=== PATIENT | female | born 2000 | race Caucasian/White ===

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

== ENCOUNTER 2024-04-05 09:45 | Emergency (ER) | payer OTHER, SELFPAY ==
[2024-04-05 09:58] VITALS: BP 146/65; PULSE 61; RESP 20; TEMP 36.1; O2SAT 100
--- NOTE | 2024-04-05 10:03 | ED.NAVMDI ---
HPI - Nausea/Vomiting/Diarrhea General Chief complaint: Nausea/Vomiting/Diarrhea Stated complaint: 22 weeks preg vomitting,diarreha Time Seen by Provider: 04/05/24 10:03 Source: patient and RN notes reviewed Mode of arrival: ambulatory Limitations: no limitations History of Present Illness HPI Narrative: 24-year-old female presented for complaint of uncontrollable nausea and vomiting since 0500. Endorses epigastric discomfort. Patient took compazine but unable to keep it down. OBGYN Was contacted by patient, who advised IV fluids. Denies vaginal bleeding. Cholecystectomy 12/2023. patient [address] weeks [address] Quezada at [facility]. Related Data Home Medications Medication Instructions Recorded Confirmed escitalopram oxalate 10 mg tablet 10 mg PO DAILY 04/05/24 04/05/24 Allergies Allergy/AdvReac Type Severity Reaction Status Date / Time No Known Allergies Allergy Verified 10/28/21 14:38 Review of Systems Review of Systems: CONSTITUTIONAL: Denies body aches, fever, chills CARDIOVASCULAR: Denies chest pain, palpitations, or edema. RESPIRATORY: Denies cough or dyspnea. GASTROINTESTINAL: Endorses abdominal pain, nausea, vomiting, Denies diarrhea, hematochezia, melena, hematemesis GENITOURINARY: Denies dysuria, hematuria, or CVA tenderness. MUSCULOSKELETAL: Denies back pain, joint pain, or myalgia. NEUROLOGIC: Denies headache, numbness, tingling, or weakness. All systems reviewed & are unremarkable except as noted in HPI and below PMFSH Comments At time of signature, I have reviewed and agree with nursing past medical, surgical, social and family history unless otherwise noted. Please see nursing chart for further information. There is no relevant family history pertinent to the presenting complaint Exam Narrative: GENERAL: ill-appearing, EYES: EOMI. Conjunctivae normal. ENT: Mucous membranes pink and moist. CHEST: No respiratory distress. Clear to auscultation. HEART: Regular rate and rhythm. No murmur appreciated. Normal peripheral pulses. ABDOMEN: frequent dry heaving and vomiting EXTREMITIES: Normal range of motion. No edema. SKIN: Warm, pale and diaphoretic Course Course Emergency Course: Patient is aware of diagnosis, understands and agrees to treatment plan. Anticipatory guidance given. Patient agrees to follow-up as directed and is aware of reasons to seek care at the emergency department. Portions of this record may have been created with voice recognition software Level of Care: Express Care Visit Transfer Transfered to: [facility] Transportation: Other ( private vehicle) Transfer rationale: Pt is agreeable to transfer. Requests transfer to [facility] via private vehicle. Risks of transportation reviewed with pt including injury, worsening of condition and . v/u. mother will be driving pt; Report called to hospital, spoke with Henrry DAVALOS, Dr Pascal, accepting physician. Pt is in stable condition at time of transfer. Advised to remain NPO and go directly to the hospital. MDM - Nausea/Vomiting/Diarrhea MDM Narrative Medical decision making narrative: Discussed physical exam findings, advised ER transfer for IV fluids Differential Diagnosis Differential diagnosis: Likely food poisoning, gastroenteritis, dehydration and other ( -induced vomiting, viral infection) Discharge Plan Discharge Clinical Impression: Vomiting during Patient Disposition: Acute Care Hospital Condition: Stable Prescriptions: No Action fluoxetine 20 mg capsule 1 cap PO DAILY ondansetron 8 mg tablet,disintegrating 1 tablet translingual Q8H PRN (Reason: Nausea) escitalopram oxalate 10 mg tablet Follow-up/Referrals: Modesta,Archie Pereira MD [Primary Care Provider] - Time of Disposition: 10:16
[2024-04-05 10:05] VITALS: BP 146/65; PULSE 61; RESP 20; TEMP 36.1; O2SAT 100
== END 2024-04-05 10:12 | disposition short-term general hospital (02) ==
PROVIDERS: Emergency Provider Nurse Practitioner Family; PCP Family Medicine
DX: O21.2 Late vomiting of pregnancy (principal); Z3A.22 22 weeks gestation of pregnancy; O99.342 Other mental disorders complicating pregnancy, second trimester; F41.9 Anxiety disorder, unspecified
CPT/HCPCS: 99212; 99213; G0463